=== PATIENT | male | born 1980 | race Caucasian/White ===

== ENCOUNTER 2021-07-23 15:44 | Emergency (ER) | payer OTHER, SELFPAY ==
--- NOTE | 2021-07-23 16:31 | CT_ITS ---
PROCEDURE INFORMATION: Exam: CT Abdomen And Pelvis With Contrast Exam date and time: 07/23/2021 4:31 PM Age: 41 years old Clinical indication: Vomiting; Abdominal pain; Localized; Right; Patient HX: Rlq pain for 8 days, vomited twice; Additional info: Ruq, rlq pain TECHNIQUE: Imaging protocol: Computed tomography of the abdomen and pelvis with contrast. Radiation optimization: All CT scans at this facility use at least one of these dose optimization techniques: automated exposure control; mA and/or kV adjustment per patient size (includes targeted exams where dose is matched to clinical indication); or iterative reconstruction. Contrast material: ISOVUE; Contrast volume: 75 ml; Contrast route: IV; COMPARISON: No relevant prior studies available. FINDINGS: Tubes, catheters and devices: None noted. Lungs: Lung bases appear clear. Heart: No significant coronary calcifications. No cardiomegaly. No significant pericardial effusion. Liver: Normal. No mass. Gallbladder and bile ducts: Cholelithiasis with inflammatory change suspicious for acute cholecystitis. No ductal dilation. Pancreas: Normal. No ductal dilation. Spleen: Normal. No splenomegaly. Adrenal glands: Normal. No mass. Kidneys and ureters: Normal. No hydronephrosis. Stomach and bowel: Unremarkable. No obstruction. No mucosal thickening. Appendix: Appendix is well visualized. No evidence of appendicitis. Intraperitoneal space: Unremarkable. No free air. No significant fluid collection. Retroperitoneal space: No significant retroperitoneal inflammatory changes are noted. Vasculature: Unremarkable. No abdominal aortic aneurysm. Lymph nodes: Unremarkable. No enlarged lymph nodes. Urinary bladder: Unremarkable as visualized. Reproductive: Unremarkable as visualized. Bones/joints: Unremarkable. No acute fracture. Soft tissues: Unremarkable. IMPRESSION: Cholelithiasis with inflammatory change suspicious for acute cholecystitis.
--- NOTE | 2021-07-23 16:32 | HMH.EDGENADL ---
ED Disposition Clinical Impression: Symptomatic cholelithiasis Disposition: Home, Self-Care Condition on Discharge: Fair Instructions: DI for Acute Abdominal Pain, DI for Gallstones Additional Instructions: You have been evaluated for abdominal pain. Diagnosed with gallstones, otherwise known as cholelithiasis. You will need to have consultation with a general surgeon to discuss a cholecystectomy, removal of the gallbladder. Take ibuprofen for pain. Zofran for nausea. Return to the emergency department at once if you have any new or worsening pain, vomiting, fevers, other concerns. Prescriptions: Ibuprofen [Ibuprofen 600mg Tablet] 600 mg PO 16 #12 tab Transmission Status: Pending to [facility] ondansetron HCL [Ondansetron 4mg tab*] 4 mg PO Q6 PRN #12 tab PRN Reason: Vomiting Transmission Status: Pending to [facility] Referrals: Provider,Referral, [Primary Care Provider] - Time of Disposition: 19:29 - Critical Care Critical Care Time: No Attestation: On , the high probability of a clinically significant, sudden or life threatening deterioration of the following system(s) required my full and direct attention, intervention and personal management. The time I documented below is in addition to time spent performing reported procedures but includes the following listed in this critical care notation. Medical Decision Making - Medical Records Medical records reviewed: Yes: I reviewed the patient's medical records. - Ortiz Inquiry Pt receiving controlled substance: No Vital Signs: 07/23/21 16:34 07/23/21 17:00 07/23/21 18:00 Temperature 98.3 F Temperature Source Oral Pulse Rate 76 68 66 Pulse Rate [Left Radial] 72 Respiratory Rate 16 16 15 Blood Pressure 159/99 H 154/103 H 133/85 Blood Pressure [Right Arm] 159/99 H Blood Pressure Mean 120 120 106 Blood Pressure Mean [Right Arm] 119 Blood Pressure Source [Right Arm] Automatic Cuff Blood Pressure Position [Right Arm] Sitting 02 Sat by Pulse Oximetry 98 98 98 Oxygen Delivery Method Room Air 07/23/21 18:30 Temperature Temperature Source Pulse Rate 61 Pulse Rate [Left Radial] Respiratory Rate 15 Blood Pressure 136/89 Blood Pressure [Right Arm] Blood Pressure Mean 102 Blood Pressure Mean [Right Arm] Blood Pressure Source [Right Arm] Blood Pressure Position [Right Arm] 02 Sat by Pulse Oximetry 98 Oxygen Delivery Method - Lab Data Lab Results 07/23/21 16:31: Urine Color Yellow, Urine Appearance Sl cloudy, Urine pH 6.0, Ur Specific [place] >= 1.030, Urine Protein Negative, Urine Glucose (UA) Negative, Urine Ketones Negative, Urine Blood Trace-i, Urine Nitrate Negative, Urine Bilirubin 1+ A, Urine Urobilinogen 0.2, Ur Leukocyte Esterase Negative, Urine RBC Occasional, Urine WBC None, Ur Squamous Epith Cells 5-10, Calcium Oxalate Crystal Trace, Urine Bacteria Trace 07/23/21 16:42: WBC 10.4, RBC 5.04, Hgb 16.1, Hct 46.3, MCV 91.8, MCH 32.0 H, MCHC 34.9, RDW 13.4, Plt Count 240, MPV 8.1, Neut % (Auto) 71.2, Lymph % (Auto) 20.9, [place] % (Auto) 5.3, Eos % (Auto) 2.1, Baso % (Auto) 0.5, Neut # (Auto) 7.4, Lymph # (Auto) 2.2, [place] # (Auto) 0.6, Eos # (Auto) 0.2, Baso # (Auto) 0.1 07/23/21 16:42: Sodium 139, Potassium 3.5, Chloride 103, Carbon Dioxide 28, Anion Gap 11.5, BUN 14, Creatinine 0.90, Estimated Creat Clear 172, Estimated GFR 93, Est GFR ( Amer) 113, Glucose 103 H, Calcium 9.6, Total Bilirubin 0.6, AST 25, ALT 17, Alkaline Phosphatase 121, Total Protein 7.6, Albumin 4.4, Globulin 3.2, Albumin/Globulin Ratio 1.4, Lipase 32 Result diagrams: 07/23/21 16:42 07/23/21 16:42 Orders (Tests/Meds): ED MEDICATIONS Generic Name Dose Route Start Last Admin Trade Name Freq PRN Reason Stop Dose Admin Sodium Chloride 1,000 mls @ 999 mls/hr 07/23/21 16:45 07/23/21 16:55 Sod Chlor 0.9% 1000ml Bag IV 07/23/21 17:45 999 mls/hr .[id number] SHAQ Administration Discontinued Medications Generic Na
[2021-07-23 16:34] VITALS: BP 159/99; PULSE 72; PULSE 76; RESP 16; RESP 18; TEMP 36.8; O2SAT 98; BMI 35.6
[2021-07-23 16:47] LABS: Microscopic, Urine URINE MICROSCOPIC (MICROSCOPIC)
[2021-07-23 16:52] LABS: Basophils # 0.1 K/mm3 (0-0.2); Basophils % 0.5 % (0.1-2.0); Eosinophils # 0.2 K/mm3 (0.0-0.4); Eosinophils % 2.1 % (0.1-12.0); Hematocrit 46.3 % (42.0-52.0); Hemoglobin 16.1 g/dL (14.1-18.0); Lymphocytes # 2.2 K/mm3 (0.7-4.5); Lymphocytes % 20.9 % (10-50); Mean Corpuscular HGB Conc 34.9 g/dL (31.8-35.4); Mean Corpuscular Volume 91.8 fl (80-94); Mean Platelet Volume 8.1 fl (7.4-10.4); Monocytes # 0.6 K/mm3 (0.1-1.0); Monocytes % 5.3 % (1.7-9.3); Neutrophils # 7.4 K/mm3 (1.8-7.8); Neutrophils % 71.2 % (37.0-80.0); Platelet Count 240 K/mm3 (142-424); Red Blood Count 5.04 M/mm3 (4.60-6.20); Red Cell Distribution Width 13.4 % (11.5-17.5); White Blood Count 10.4 K/mm3 (4.8-10.8)
[2021-07-23 16:53] LABS: Appearance,Urine SL CLOUDY (Clear); Blood, Urine TRACE-I (Negative); Color,Urine YELLOW (Yellow); Glucose,Urine (UA) Negative (Negative); Ketones,Urine Negative (Negative); Leukocyte Esterase,Urine Negative (Negative); Nitrate,Urine Negative (Negative); Protein,Urine Negative (Negative); Specific Gravity, Urine >= 1.030 (1.005-1.030); Urobilinogen,Urine 0.2 EU/dl (0.2)
[2021-07-23 17:00] VITALS: BP 154/103; PULSE 68; RESP 16; O2SAT 98
[2021-07-23 17:04] LABS: Alanine Aminotransferase 17 U/L (12-78); Albumin Level 4.4 g/dl (3.5-5.0); Albumin/Globulin Ratio 1.4 (1.1-1.8); Alkaline Phosphatase 121 U/L (38-126); Anion Gap 11.5 mEq/L (5-15); Aspartate Amino Transferase 25 U/L (17-59); Bilirubin,Total 0.6 mg/dl (0.2-1.3); Blood Urea Nitrogen 14 mg/dl (9-20); Calcium 9.6 mg/dl (8.4-10.2); Carbon Dioxide 28 mmol/L (22.0-30.0); Chloride 103 mmol/L (98-107); Creatinine Clearance Estimated 172 mL/min (50-200); Estimated Glomerular Filt Rate 93 ml/min (>60); GFR (African American) 113 ML/MIN (>60); Globulin 3.2 g/dL (1.3-3.2); Glucose 103 mg/dl (74-100); Lipase 32 U/L (23-300); Potassium 3.5 mmoL/L (3.5-5.1); Sodium 139 mmol/L (136-145); Total Protein,Serum 7.6 g/dl (6.3-8.2)
[2021-07-23 17:19] LABS: Bacteria,Urine Trace /lpf; Bilirubin,Urine 1+ (Negative); Calcium Oxalate Crystals,Urine Trace /lpf; RBC,Urine Occasional #/hpf (0-3)
[2021-07-23 18:00] VITALS: BP 133/85; PULSE 66; RESP 15; O2SAT 98
[2021-07-23 18:30] VITALS: BP 136/89; PULSE 61; RESP 15; O2SAT 98
--- NOTE | 2021-07-23 18:38 | PC.NURSE ---
ROLANDA on the phone with
[2021-07-23 19:01] VITALS: BP 145/93; PULSE 69; O2SAT 97
[2021-07-23 19:57] VITALS: BP 145/93; PULSE 69; RESP 18; TEMP 36.8; O2SAT 97
== END 2021-07-23 19:58 | disposition home or self-care (01) ==
PROVIDERS: Emergency Provider Emergency Medicine
DX: K80.20 Calculus of gallbladder without cholecystitis without obstruction (principal)
CPT/HCPCS: 74177; 80053; 81001; 83690; 85025; 96365; 96375; 99283; Q9967

== ENCOUNTER → 2021-07-30 10:07 | Outpatient (CLI) | payer OTHER, SELFPAY ==
--- NOTE | 2021-07-30 10:11 | US_ITS ---
PROCEDURE: US GALLBLADDER CLINICAL INDICATION: Right upper quad COMPARISON: CT CT ABDOMEN PELVIS W CON from 07/23/2021 FINDINGS: Pancreas: Not well visualized. Liver: Unremarkable. There is appropriate direction of blood flow within a non dilated portal vein. Right kidney: Unremarkable appearing. No hydronephrosis. Gallbladder: The gallbladder is enlarged with thickened wall and numerous stones. Gallbladder wall measures up to 6 mm. No pericholecystic fluid. Common bile duct is upper normal at 6 mm. IMPRESSION: Cholelithiasis with mildly thickened gallbladder wall. No pericholecystic fluid. Common bile duct upper normal at 6 mm. Dictated by: Josh Saavedra MD 07/30/2021 13:18 Josh Saavedra MD in [place] 07/30/2021 13:18
[2021-07-30 11:41] LABS: Basophils # 0.2 K/mm3 (0-0.2); Basophils % 2.4 % (0.1-2.0); Eosinophils # 0.3 K/mm3 (0.0-0.4); Hematocrit 49.3 % (42.0-52.0); Lymphocytes # 2.4 K/mm3 (0.7-4.5); Lymphocytes % 29.3 % (10-50); Mean Corpuscular HGB Conc 32.5 g/dL (31.8-35.4); Mean Corpuscular Hemoglobin 30.7 pg (27.0-31.2); Mean Corpuscular Volume 94.4 fl (80-94); Mean Platelet Volume 8.9 fl (7.4-10.4); Monocytes # 0.4 K/mm3 (0.1-1.0); Monocytes % 4.9 % (1.7-9.3); Neutrophils # 4.9 K/mm3 (1.8-7.8); Neutrophils % 59.4 % (37.0-80.0); Platelet Count 276 K/mm3 (142-424); Red Blood Count 5.22 M/mm3 (4.60-6.20); Red Cell Distribution Width 13.9 % (11.5-17.5); White Blood Count 8.2 K/mm3 (4.8-10.8)
[2021-07-30 12:23] LABS: Chloride 104 mmol/L (98-107); Potassium 4.6 mmoL/L (3.5-5.1); Sodium 140 mmol/L (136-145)
[2021-07-30 12:26] LABS: Alanine Aminotransferase 166 U/L (12-78); Albumin Level 4.4 g/dl (3.5-5.0); Albumin/Globulin Ratio 1.5 (1.1-1.8); Alkaline Phosphatase 216 U/L (38-126); Anion Gap 15.6 mEq/L (5-15); Aspartate Amino Transferase 77 U/L (17-59); Bilirubin,Total 0.8 mg/dl (0.2-1.3); Blood Urea Nitrogen 7 mg/dl (9-20); Carbon Dioxide 25 mmol/L (22.0-30.0); Estimated Glomerular Filt Rate 107 ml/min (>60); GFR (African American) 129 ML/MIN (>60); Total Protein,Serum 7.4 g/dl (6.3-8.2)
[2021-07-30 12:27] LABS: Calcium 9.4 mg/dl (8.4-10.2); Glucose 97 mg/dl (74-100)
== END ==
PROVIDERS: Visit Provider Surgery
DX: Z01.812 Encounter for preprocedural laboratory examination (principal); Z11.52 Encounter for screening for COVID-19; K80.20 Calculus of gallbladder without cholecystitis without obstruction
CPT/HCPCS: 36415; 76705; 80053; 85025; C9803; U0003; U0005

== ENCOUNTER 2021-07-31 06:04 | Day surgery (SDC) | payer OTHER, SELFPAY ==
[2021-07-31] VITALS (10 sets, daily range): BP systolic 140–160; BP diastolic 82–100; PULSE 59–67; RESP 12–21; TEMP 36.5–43; O2SAT 93–98
--- NOTE | 2021-07-31 07:54 | P.PN_ITS ---
[facility] Anesthesia Checklist - Structural Data Admitted From: Home Planned Operative Procedure/s: emily colbert Consent for Planned Operative Procedure(s) Verified: Yes - Additional verifications Anesthesia Reactions: No Hx Blood Transfusions: No Blood Transfusion Reaction: No - Airway Assessment C-Spine Mobility Assessed: Yes TMJ Mobility Assessed: Yes Dentition: Good Dentition - Neurological Assessment Level of Consciousness: Awake, Alert, Appropriate - Anesthesia Plan Anesthesia Risk discussed: Yes Anesthesia Plan: Verified ASA Class: II Anesthesia Type: General [facility] History I have reviewed the patient's past medical history: Yes Medical History: Denies:: Cancer, Diabetes Mellitus Type 1, Diabetes Mellitus Type 2, MRSA, Seizures *Have you ever received a pneumonia vaccine?: No *Have you received a flu vaccine this season?: Yes Other Medical History: Denies: Blood Transfusion Reaction Anesthesia experience/problems:: none Other Surgeries: Yes: No Previous Surgery Amputation: No - *Social History Last grade of school completed: Some college Smoking Status: Never smoker Tobacco Type: smokeless tobacco Alcohol Intake: never Substance Use Type: denies use *Occupational Status:: employed Housing: house Household Members: spouse *Travel in the last 8 weeks: None Family Hx:: Cancer
--- NOTE | 2021-07-31 08:30 | SUR.OPER ---
0727- [facility] 2 gram pulled and given by peng pagan per MD preop orders.
--- NOTE | 2021-07-31 09:15 | XR_ITS ---
PROCEDURE: XR KUB CLINICAL INDICATION: CHOLANGIOGRAM IN SX COMPARISON: CT CT ABDOMEN PELVIS W CON from 07/23/2021 FINDINGS: Intraoperative cholangiogram performed with contrast injected into the cystic duct. The common hepatic duct is prominent at 10 mm. The common bile duct is normal in caliber at 6 mm. There is a persistent oval filling defect at the distal aspect of the common bile duct which measures 6 x 4 mm. This could represent an air bubble or a distal common duct stone. Follow-up MRCP may provide further evaluation. There is good flow contrast into the duodenum. IMPRESSION: Small oval filling defect at the distal common bile duct which could be due to an air bubble or a small stone. Follow-up MRCP may provide further evaluation Prominence of the common hepatic duct at 10 mm with normal caliber common bile duct Dictated by: Josh Saavedra MD 07/31/2021 11:36 Josh Saavedra MD in [facility] 07/31/2021 11:36
--- NOTE | 2021-07-31 10:00 | SUR.OPER ---
0845- cholangiogram began at this time per Dr order.
--- NOTE | 2021-07-31 10:27 | HMH.OPNOTE ---
Date of procedure: 07/31/21 Pre-op Diagnosis:: Symptomatic cholelithiasis Post-op Diagnosis:: Acute cholecystitis Procedure performed:: Laparoscopic cholecystectomy with intraoperative cholangiogram Surgeon:: Ramirez Mcleod MD ADMISSIONS RECRUITER:: Lazaro Milner Anesthesia: GETA Estimated blood loss (mL): 75 Clinical Note:: Patient is a 41-year-old male from [place] who was referred by the emergency department for gallbladder. He was seen in the office as a consultation yesterday on 07/30/2021. He had developed symptoms of postprandial right-sided abdominal pain beginning on approximately 07/13/2021. This persisted. Has become quite severe. He was seen in the emergency department on 07/23/2021. He was found to have normal liver function test. He underwent CT scan which revealed findings of gallstones with inflammation consistent with acute cholecystitis. He was managed as an outpatient. He has had ongoing symptoms. He has only been on a clear liquid diet. Patient works for the [employer]. He strongly wished to pursue surgery. I did have him undergo gallbladder ultrasound which revealed cholelithiasis with mildly thickened gallbladder wall with 6 mm common bile duct. Operative findings:: Patient had a significantly distended rather thickened gallbladder which was somewhat tense. There were omental adhesions obscuring a large portion of the gallbladder. There were multiple very large gallstones. Common bile duct was thickened mainly from chronic inflammation and scarring. He had a rather prominent cystic artery. Operative note:: Patient was taken to the operating room. He was positioned in supine position. General anesthesia was induced. Abdomen was prepped and draped in the standard surgical fashion. Subumbilical skin incision was made and while performing abdominal wall lift Veress needle was inserted. CO2 pneumoperitoneum was achieved to 15 mmHg. 11 mm optical trocar was inserted at the umbilicus. Intraperitoneal contents were visualized. The gallbladder was noted to be distended and thickened. He was positioned in reverse Trendelenburg left side down. A couple of 5 mm trochars were inserted in the right upper abdomen. 10 mm trocar was inserted in the epigastrium. Gallbladder was grasped and retracted anteriorly and superiorly over the dome of the liver. Omental adhesions were taken down from the gallbladder using EUGENIA ultrasonic robotic susan and blunt dissection. Gallbladder is markedly elongated and distended and thickened. Infundibulum of the gallbladder was retracted anterior laterally. There was significant inflammatory process around the neck of the gallbladder and perihepatic space. Very prolonged dissection was carried out ultimately identifying what appeared to be the cystic duct. However this was rather thickened. Meticulous additional dissection was carried out identifying what appeared to be cystic artery but this was rather prominent as well. Due to the prominence of the cystic duct and inflammatory process plan was made to perform intraoperative cholangiogram to confirm anatomy. Small incision was made in the right upper abdomen. Taut cholangiocatheter introducer was inserted. Single Hemoclip was placed on the cystic duct adjacent to the gallbladder. Small ductotomy was made. The cystic duct was markedly thickened and this required prolonged dissection via ductotomy with the micro metzenbaum scissors to visualize probable cystic duct lumen. Cholangiocatheter was then inserted and secured with a Hemoclip. Intraoperative cholangiogram was performed with plain films. This revealed no obvious evidence of obstruction and confirmed that this was truly the cystic duct. Patient was then repositioned. Cholangiocatheter was removed. Cystic duct was multiply clipped and then sharply divided. Due to its thickened nature a couple of PDS Endoloops were placed around it. The cystic artery which was clearly ident
--- NOTE | 2021-07-31 10:36 | HMH.ANESI ---
[facility] Anesthesia Record Part I Intake, IV Amount: 2,500 Estimated blood loss (mL): 25 Urine output (mL): 0 Blood Pressure: 160/100 SaO2: 96 Pulse Rate: 65 Respiratory Rate: 12 Temperature: 97.7 F Patient is:: Awake, Stable Stable to PACU at:: 10:30
--- NOTE | 2021-08-03 10:15 | P.PN_ITS ---
[facility] Anesthesia Record Part II Discharge Time: 11:00 Destination: [facility] PACU nurse assessment reviewed?: Yes Patient Condition:: Good Anesthesia Complications:: None Swallowing reflex intact?: Yes Cyanosis?: No Blood Pressure: 145/94 Pulse Rate: 65 Temperature: 98.4 F Mental Status: Alert & Oriented Pain level:: 0 Nausea and/or vomitting:: None Intake, IV Amount: 1,500
[2021-08-03 10:16] VITALS: BP 145/94; PULSE 65; TEMP 36.9
== END 2021-07-31 11:31 | disposition home or self-care (01) ==
LOC: OR 06:05
PROVIDERS: Visit Provider Surgery
PROC: 0FT44ZZ Resection of Gallbladder, Percutaneous Endoscopic Approach (ICD-10-PCS; CPT 47562; principal; 2021-07-31 07:30)
DX: K80.00 Calculus of gallbladder with acute cholecystitis without obstruction (principal); K82.8 Other specified diseases of gallbladder; K83.8 Other specified diseases of biliary tract; K66.0 Peritoneal adhesions (postprocedural) (postinfection); Z80.9 Family history of malignant neoplasm, unspecified
CPT/HCPCS: 47563; 74018; 76000; 96374; J2405; J2710; Q9967